=== PATIENT | male | born 1955 | race Caucasian/White ===

== ENCOUNTER → 2022-01-20 | Outpatient (CLI) | payer BC ==
[~2022-01-20] MED LIST: AMOXICILLIN500 MG PO; ASPIRIN81 M1 PO; KEFLEX500 MG PO; PERCOCET 325 MG1 TA7 PO
[2022-01-20 10:46] LABS: BASO # 0.1 10*3/uL (0.0-0.1); BASO % 0.5 % (0.0-1.0); EOS # 0.2 10*3/uL (0.0-0.4); HEMATOCRIT 50.7 % (42.0-52.0); LYMPH # 2.6 10*3/uL (1.3-4.4); LYMPH % 24.5 % (27.0-41.0); MEAN CELL VOLUME 90.9 fl (80.0-94.0); MEAN CORPUSCULAR HGB 31.5 pg (27.0-31.0); MEAN CORPUSCULAR HGB CONC 34.7 g/dl (33.0-37.0); MEAN PLATELET VOLUME 11.2 fl (9.6-12.3); MONO # 1.2 10*3/uL (0.1-1.0); MONO % 11.2 % (3.0-9.0); NEUT # 6.6 10*3/uL (2.3-7.9); NEUT % 61.5 % (47.0-73.0); PLATELET COUNT AUTOMATED 129 10*3/uL (130-400); RED BLOOD COUNT 5.58 10*6/uL (4.50-5.90); RED CELL DISTRI WIDTH 12.4 % (0-14.5); WHITE BLOOD COUNT 10.6 10*3/uL (4.8-10.8)
[2022-01-20 11:08] LABS: URIC ACID 6.2 mg/dL (3.5-7.2)
[2022-01-20 13:02] LABS: BF LYMPHOCYTES 2 %; BF MACROPHAGES 17 %; BF NEUTROPHILS 81 %
[2022-01-21 10:08] LABS: ACID FAST SPEC PROCESSING Direct Inoculation (.)
== END | disposition home or self-care (01) ==
LOC: LAB 10:24
PROVIDERS: ATTEND Orthopaedic Surgery
DX: E78.00 Pure hypercholesterolemia, unspecified (principal); M25.462 Effusion, left knee

== ENCOUNTER → 2022-03-08 | Outpatient (CLI) | payer BC | END | disposition home or self-care (01) | LOC: US 13:59 | PROVIDERS: ATTEND Orthopaedic Surgery | DX: S83.242A Other tear of medial meniscus, current injury, left knee, initial encounter (principal); S83.242D Other tear of medial meniscus, current injury, left knee, subsequent encounter; M25.462 Effusion, left knee; X58.XXXD Exposure to other specified factors, subsequent encounter; X58.XXXA Exposure to other specified factors, initial encounter; Y93.89 Activity, other specified; Y92.89 Other specified places as the place of occurrence of the external cause; Y99.8 Other external cause status ==